=== PATIENT | female | born 1990 | race Caucasian/White ===

== ENCOUNTER 2018-02-24 12:17 | Inpatient (IN) | payer MEDICAID | END 2018-02-25 13:10 | disposition home or self-care (01) | DRG 782 | LOC: OBT 12:17 → L-D 12:20 → OBT 14:50 → L-D 14:45 | DX: O76 Abnormality in fetal heart rate and rhythm complicating labor and delivery (principal); Z3A.37 37 weeks gestation of pregnancy | CPT/HCPCS: 76818 ==

== ENCOUNTER 2018-02-28 10:58 | Outpatient (CLI) | payer MEDICAID | END 2018-02-28 12:24 | disposition home or self-care (01) | LOC: OBT 10:58 → L-D 11:01 → OBT 12:24 | DX: O36.8393 Maternal care for abnormalities of the fetal heart rate or rhythm, unspecified trimester, fetus 3 (principal); O28.3 Abnormal ultrasonic finding on antenatal screening of mother; Z3A.38 38 weeks gestation of pregnancy | CPT/HCPCS: 76818 ==

== ENCOUNTER 2018-03-09 21:58 | Inpatient (IN) | payer MEDICAID ==
[2018-03-09] MEDS ORDERED: MISOPROSTOL 200 MCG TAB PR (23:00)
[2018-03-09] MEDS ORDERED: LIDOCAINE 1% (MPF) 30 ML INJ INJ (23:00)
[2018-03-09] MEDS ORDERED: CARBOPROST 250 MCG INJ IM (23:00)
[2018-03-09] MEDS ORDERED: METHYLERGONOVINE 0.2 MG INJ IM (23:00)
[2018-03-09] MEDS ORDERED: BUTORPHANOL 2 MG INJ IV (23:00)
[2018-03-09] MEDS ORDERED: OXYTOCIN 30 UNITS/LR 500 ML IV (23:00)
[2018-03-09] MEDS ORDERED: IBUPROFEN 600 MG TAB PO (23:00)
[2018-03-09] MEDS: LACTATED RINGER'S 1,000 ML IV (23:29)
[2018-03-10 01:15] LABS: ADD MAN DIFF? NO
[2018-03-10 01:28] LABS: WHITE BLOOD COUNT 8.8 10^3/ul (4.8-10.8)
[2018-03-10 01:28] LABS: BASOPHILS % 0.3 % (0.0-2.0); EOSINOPHILS % 0.2 % (0.0-7.0); HEMATOCRIT 36.5 % (37.0-47.0); HEMOGLOBIN 12.8 g/dl (12.0-16.0); LYMPHOCYTES # 2.3 10^3/ul (0.8-2.9); LYMPHOCYTES % 25.7 % (15.0-51.0); MEAN CORPUSCULAR HEMOGLOBIN 31.2 pg (29.0-33.0); MEAN CORPUSCULAR HGB CONC 35.1 g/dl (32.0-37.0); MEAN PLATELET VOLUME 11.5 fl (7.4-10.4); MONOCYTES % 10.8 % (0.0-11.0); NEUTROPHIL # 5.5 10^3/ul (1.6-7.5); NEUTROPHILS % 62.8 % (39.0-77.0); PLATELET COUNT 216 10^3/UL (140-415); RED CELL DISTRIBUTION WIDTH 13.3 % (11.5-14.5)
[2018-03-10 01:46] LABS: INR 0.96; PROTIME 12.9 Sec (11.9-14.9)
[2018-03-10 01:47] LABS: PARTIAL THROMBOPLASTIN TIME 34.3 Sec (25.0-35.0)
[2018-03-10 01:54] LABS: ALANINE AMINOTRANSFERASE 22 IU/L (13-69); ALBUMIN 3.3 g/dl (3.3-4.9); ALKALINE PHOSPHATASE 176 IU/L (42-121); ANION GAP 14 (8-16); ASPARTATE AMINO TRANSFERASE 27 IU/L (15-46); BILIRUBIN,INDIRECT 0.4 mg/dl (0-1.1); BILIRUBIN,TOTAL 0.4 mg/dl (0.2-1.3); BLOOD UREA NITROGEN 13 mg/dl (7-20); CALCIUM 8.6 mg/dl (8.4-10.2); CARBON DIOXIDE 24 mmol/L (21-31); CHLORIDE 108 mmol/L (97-110); CREATININE 0.61 mg/dl (0.44-1.00); GLUCOSE 83 mg/dl (70-220); POTASSIUM 3.7 mmol/L (3.5-5.1); SODIUM 142 mmol/L (135-144); TOTAL PROTEIN 6.3 g/dl (6.1-8.1); URIC ACID 7.1 mg/dl (3.1-7.9)
[2018-03-10 02:21] LABS: HEPATITIS B SURFACE ANTIGEN NEGATIVE (NEGATIVE)
[2018-03-10] MEDS: LACTATED RINGER'S 1,000 ML IV (02:33)
[2018-03-10] MEDS: LACTATED RINGER'S 1,000 ML IV* ×2 (03:06→11:06)
[2018-03-10] MEDS: OXYTOCIN 30 UNITS/LR 500 ML IV ×3 (03:06→04:10)
[2018-03-10] MEDS ORDERED: ACETAMINOPHEN 325 MG TAB PO ×2 (03:30)
[2018-03-10] MEDS ORDERED: SENNA/DOCUSATE NA (8.6MG/50MG) TAB PO (03:30)
[2018-03-10] MEDS ORDERED: MISOPROSTOL 200 MCG TAB PR (03:30)
[2018-03-10] MEDS ORDERED: ONDANSETRON 4 MG INJ IV (03:30)
[2018-03-10] MEDS ORDERED: MAGNESIUM HYDROXIDE 30ML CUP PO (03:30)
[2018-03-10] MEDS ORDERED: OXYTOCIN 30 UNITS/LR 500 ML IV (03:30)
[2018-03-10] MEDS ORDERED: CARBOPROST 250 MCG INJ IM (03:30)
[2018-03-10] MEDS: METHYLERGONOVINE 0.2 MG INJ IM (04:26)
[2018-03-10] MEDS: IBUPROFEN 600 MG TAB PO (05:20)
[2018-03-10] MEDS: WITCH HAZEL/GLYCERIN PAD PR (16:03)
[2018-03-10] MEDS: BENZOCAINE 20% 56 ML SPRAY TOP (16:03)
[2018-03-10] MEDS: LANOLIN 7 GM TUBE TOP (16:03)
[2018-03-10] MEDS: DIBUCAINE 1% 30 GM OINT PR (16:03)
[2018-03-10 18:14] LABS: RAPID PLASMA REAGIN NONREACTIVE (NR)
[2018-03-11 11:11] LABS: ADD MAN DIFF? NO
[2018-03-11 11:13] LABS: WHITE BLOOD COUNT 9.2 10^3/ul (4.8-10.8)
[2018-03-11 11:13] LABS: BASOPHILS % 0.2 % (0.0-2.0); EOSINOPHILS # 0.1 10^3/ul (0.0-0.5); EOSINOPHILS % 0.8 % (0.0-7.0); HEMATOCRIT 31.8 % (37.0-47.0); HEMOGLOBIN 10.9 g/dl (12.0-16.0); LYMPHOCYTES # 1.9 10^3/ul (0.8-2.9); LYMPHOCYTES % 20.4 % (15.0-51.0); MEAN CORPUSCULAR HGB CONC 34.3 g/dl (32.0-37.0); MEAN CORPUSCULAR VOLUME 90.3 fl (82.0-101.0); MEAN PLATELET VOLUME 10.4 fl (7.4-10.4); MONOCYTE # 0.9 10^3/ul (0.3-0.9); MONOCYTES % 9.3 % (0.0-11.0); NEUTROPHIL # 6.4 10^3/ul (1.6-7.5); NEUTROPHILS % 68.9 % (39.0-77.0); PLATELET COUNT 182 10^3/UL (140-415); RED BLOOD COUNT 3.52 10^6/ul (4.20-5.40); RED CELL DISTRIBUTION WIDTH 13.5 % (11.5-14.5)
[2018-03-11] MEDS: IBUPROFEN 600 MG TAB PO (16:01)
== END 2018-03-12 17:25 | disposition home or self-care (01) | DRG 775 ==
LOC: OBT 21:58 → L-D 21:59 → OBT 22:35 → L-D 22:35 → PP1 03-10 15:17
PROVIDERS: Obstetrics & Gynecology
PROC: 10E0XZZ Delivery of Products of Conception, External Approach (ICD-10-PCS; principal; 2018-03-10)
PROC: 3E033VJ Introduction of Other Hormone into Peripheral Vein, Percutaneous Approach (ICD-10-PCS; 2018-03-10)
DX: O48.0 Post-term pregnancy (principal); Z3A.40 40 weeks gestation of pregnancy; Z37.0 Single live birth
CPT/HCPCS: 80053; 84560; 85025; 85610; 85730; 86592; 86850; 86900; 86901; 87340